=== PATIENT | male | born 1985 | race Caucasian/White ===

== ENCOUNTER 2019-06-09 14:25 | Emergency (ER) | payer OTHER ==
[2019-06-09 14:43] VITALS: BP 136/102
--- NOTE | 2019-06-09 15:12 | ED Physician Documentation ---
History of Present Illness - Stated complaint Stated Complaint: BACK PX - Chief complaint Chief Complaint: Back Pain - Additonal information Additional information: This is a 33-year-old male with a history of recurrent chronic back pain who presents with a flare of his back pain. Patient is getting over the flu and has been coughing repeatedly, yesterday he was coughing and that flared up his left lower back pain. He has had x-rays as an outpatient which have been unrevealing bowel or bladder complaints. No numbness or tingling or weakness. No fever. He did not have any direct trauma to the region. He states that his back feels like it is been spasming for the last 24 hours, and he has been taking ibuprofen but this has not given him significant relief. Pain is moderate at rest, severe with movements. Review of Systems Constitutional: denies: Fever Musculoskeletal: reports: Back pain PD PAST MEDICAL HISTORY - Past Medical History Past Medical History: Yes : Kidney stones Musculoskeletal: Chronic back pain - Past Surgical History Past Surgical History: Yes General: Other - Present Medications Home Medications: Ambulatory Orders Medication Instructions Recorded Confirmed Cyclobenzaprine [Flexeril] 10 mg PO TID PRN #20 tablet 06/09/19 DULoxetine [Cymbalta] 30 mg PO DAILY 06/09/19 06/09/19 Lidocaine Patch 5% [Lidoderm Patch] 1 each TOP DAILY PRN #7 patch 06/09/19 - Allergies Allergies/Adverse Reactions: Allergies Allergy/AdvReac Type Severity Reaction Status Date / Time No Known Drug Allergies Allergy Verified 06/09/19 14:36 - Social History Does the pt smoke?: No Smoking Status: Never smoker Does the pt drink ETOH?: Yes Does the pt have substance abuse?: No - Immunizations Immunizations are current?: Yes PD ED PE NORMAL - Vitals Vital signs reviewed: Yes - General General: Alert and oriented X 3, No acute distress - HEENT HEENT: PERRL - Neck Neck: Supple, no meningeal sign - Cardiac Cardiac: RRR, No murmur - Respiratory Respiratory: No respiratory distress - Abdomen Abdomen: Soft, Non tender, Non distended - Back Back: No spinal TTP, Other (Left paraspinous tenderness in the mid lumbar spine, no midline tenderness, no deformities, no overlying skin changes. Patient has 5 out of 5 strength with ankle dorsiflexion plantarflexion knee flexion extension. Sensation light touch is intact over all extremities. Patient is able to walk with a somewhat antalgic gait.) - Derm Derm: Warm and dry - Extremities Extremities: No deformity - Neuro Neuro: Alert and oriented X 3 - Psych Psych: Normal mood, Normal affect Results - Vitals Vitals: Vital Signs - 24 hr 06/09/19 14:37 Temperature 36.2 C L Heart Rate 72 Respiratory 18 Rate Blood Pressure 136/102 H O2 Saturation 97 Oxygen O2 Source Room air Procedures - General procedure General procedure: Trigger point injection: After discussion of the risks of the procedure verbal consent was obtained. The 2 areas of maximal tenderness with located, cleaned with alcohol, and 0.5ml of lidocaine injected into the paraspinous muscles at these locations, with care to stay superficial and in the muscle. There was no bleeding afterwards, no complications, pt tolerated the procedure well. PD MEDICAL DECISION MAKING - ED course ED course: Pt presents with an exacerbation of chronic back pain. He has had imaging in the past, and this pain is identical to past episodes. No red flags: no fever, weakness, bowel or bladder symptoms, trauma, history of cancer, or advanced age. His pain is in the paraspinous muscles. After trigger point injection I prescribed flexeril and lidocaine patches and reviewed follow up and supportive care and patient was discharged home in good condition. Departure - Departure Disposition: 01 Home, Self Care Clinical Impression: Back pain Qualifiers: Back pain location: low back pain Chronicity: acute Back pain laterality: left Sciatica presence: without sciatica Qualified Code(s): M54.5 - Low back pain Condition: Good Instructions: ED Neck Back Pain General Follow-Up: Sobia Pena MD [Primary Care Provider] - Prescriptions: Cyclobenzaprine [Flexeril] 10 mg PO TID PRN #20 tablet PRN Reason: Spasms Lidocaine Patch 5% [Lidoderm Patch] 1 each TOP DAILY PRN #7 patch PRN Reason: Pain Comments: You were seen today for back pain. We have done a trigger point injection which hopefully will help with your pain. You may also use the Flexeril, and the lidocaine patches. You should also take ibuprofen 600 mg every 6 hours and Tylenol 650 mg every 6 hours for discomfort. Avoid straining or lifting movements until your back pain is improving. If you developing worsening symptoms such as severely increasing pain, numbness, weakness, or difficulty urinating or having bowel movements return to the emergency department Forms: Activity restrictions Discharge Date/Time: 06/09/19 16:18
[2019-06-09] MEDS ORDERED: BUFFERED LIDOCAINE 10 ML SYRINGE SUBQ STA (15:36)
== END 2019-06-09 16:18 | disposition home or self-care (01) ==
LOC: ED 14:25
DX: M54.5 Low back pain (principal); G89.29 Other chronic pain
CPT/HCPCS: 20552

== ENCOUNTER 2021-09-13 14:26 | Emergency (ER) | payer OTHER ==
[2021-09-13 14:56] VITALS: BP 121/80
[2021-09-13] MEDS ORDERED: KETOROLAC 60 MG/2 ML VIAL IM STA (15:52)
--- NOTE | 2021-09-13 15:55 | ED Physician Documentation ---
History of Present Illness - Stated complaint Stated Complaint: BACK PX - Chief complaint Chief Complaint: Back Pain - Additonal information Additional information: 35-year-old male who is active [employer] presents emergency department for e valuation of left low sided back pain. Nonradiating. No falls or trauma. No saddle anesthesia. No history of spinal instrumentation, diabetes or injection drug use. States that he has back pain flares about every 3 to 6 months which typically resolve with movement and sometimes muscle relaxers. The symptoms began 48 hours ago. Did not improve with his usual regimen thus he presents to the ER now Review of Systems Constitutional: reports: Reviewed and negative Ears: reports: Reviewed and negative Throat: reports: Reviewed and negative Cardiac: reports: Reviewed and negative Respiratory: reports: Reviewed and negative GI: reports: Reviewed and negative : reports: Reviewed and negative Musculoskeletal: reports: Back pain Neurologic: reports: Reviewed and negative Psychiatric: reports: Reviewed and negative PD PAST MEDICAL HISTORY - Past Medical History Past Medical History: Yes Cardiovascular: None Respiratory: None Neuro: None Endocrine/Autoimmune: None GI: None : Kidney stones HEENT: None Psych: None Musculoskeletal: Chronic back pain Derm: None - Past Surgical History Past Surgical History: Yes General: Other - Present Medications Home Medications: Ambulatory Orders Medication Instructions Recorded Confirmed Cyclobenzaprine [Flexeril] 10 mg PO TID PRN #20 tablet 06/09/19 DULoxetine [Cymbalta] 30 mg PO DAILY 06/09/19 06/09/19 Lidocaine Patch 5% [Lidoderm Patch] 1 each TOP DAILY PRN #7 patch 06/09/19 Cyclobenzaprine [Flexeril] 10 mg PO TID PRN #20 tablet 09/13/21 HYDROcod/ACETAM 5/325 [Rogers 5/325] 1 tablet PO BID PRN #10 tablet 09/13/21 Ibuprofen [Motrin] 600 mg PO Q6H PRN #30 tab 09/13/21 - Allergies Allergies/Adverse Reactions: Allergies Allergy/AdvReac Type Severity Reaction Status Date / Time No Known Drug Allergies Allergy Verified 09/13/21 14:52 - Social History Does the pt smoke?: No Smoking Status: Never smoker Does the pt drink ETOH?: Yes Does the pt have substance abuse?: No - Immunizations Immunizations are current?: Yes PD ED PE NORMAL - General General: Alert and oriented X 3, No acute distress - HEENT HEENT: Atraumatic - Neck Neck: Supple, no meningeal sign - Cardiac Cardiac: RRR, No murmur - Abdomen Abdomen: Normal bowel sounds, Soft - Back Back: No spinal TTP (Mild left lower lumbar paraspinous tenderness. Reduced forward flexion range of motion. No rash, ecchymosis or erythema. Motor strength 5 of 5 bilateral lower extremities. No paresthesias. 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 Clinically no red flags and a reassuring exam though he does have an antalgic gait. Patient was given Toradol here in the emergency department. Will be discharged with prescription for ibuprofen, limited muscle relaxer as well as a limited amount of hydrocodone. Emergent return precautions were discussed for failure of symptoms to resolve. I did discuss that since this is a recurrent problem and physical therapy has not improved his symptoms he may benefit from MRI I am prescribing a short course of short-acting opioid pain medication for this patient. I have reviewed the patients [employer]PER[employer] and no concerning findings were noted. I have discussed that the opioids are for short term therapy only, and will not be refilled from the ED. Departure - Departure Disposition: 01 Home, Self Care Clinical Impression: Left low back pain Qualifiers: Chronicity: acute Sciatica presence: without sciatica Qualified Code(s): M54.50 - Low back pain, unspecified Condition: Stable Record reviewed to determine appropriate education?: Yes Instructions: ED Spasm Back No Trauma Prescriptions: Cyclobenzaprine [Flexeril] 10 mg PO TID PRN #20 tablet PRN Reason: Spasms Ibuprofen [Motrin] 600 mg PO Q6H PRN #30 tab PRN Reason: Pain HYDROcod/ACETAM 5/325 [Rogers 5/325] 1 tablet PO BID PRN #10 tablet PRN Reason: Pain Comments: Jose Maria you are seen today in the emergency department for pain in the left side of your low back. As we discussed at the bedside I would like you to use the ibuprofen with food 2-3 times a day. I have prescribed a limited amount of hydrocodone for severe pain only. You may also benefit from using the muscle relaxer. Because this has become a recurrent problem for you and physical therapy has not helped [facility] may wish to make a referral for you to a back pain specialist or consider an MRI moving forward. If any point you find that your symptoms are worsening, you have loss of control of bowel or bladder function, sudden weakness in your arms or legs or numbness or tingling in your genital area then please return immediately to the ER for second evaluation Your prescriptions have been sent electronically to the [facility] in [place] I am prescribing a short course of narcotic pain medication for you. These are potentially dangerous and addictive medications that should be used carefully. These medications may constipate you. Take an sknn-nna-qwahalh stool softener (docusate) twice daily with plenty of water while taking these medications. If you go 24 hours without a bowel movement, take iqjy-bzf-mqbnido miralax, per package instructions. Do not drink or drive while taking these medications. If you received narcotic or sedating medications while in the emergency department, do not drive for 24 hours. Store this medication in a safe, secure place and out of reach of children. It is a violation of federal law to give or sell this medication to another person or to use in a manner other than prescribed. The ED will not refill narcotic prescriptions, including prescriptions lost or stolen. To dispose of unwanted medications: 1. [facility] at [address] in [place] has a medication drop box. They accept prescription medications (in pill form) Sunday through Sunday 9:00 a.m. to 5:00 p.m. 2. The [facility] [employer] accepts prescription medications (in pill form only) for disposal year round. Call for more information. 3. Contact the [facility] for the next [facility] sponsored prescription drug collection event. , [phone], or [phone]; Note that many narcotic pain relievers also contain Tylenol/acetaminophen. Please ensure that your total dose of acetaminophen from all sources does not exceed 3 g (3000 mg) per day.
== END 2021-09-13 16:41 | disposition home or self-care (01) ==
LOC: ED 14:26
DX: M54.50 Low back pain, unspecified (principal)
CPT/HCPCS: 96372; 99283

== ENCOUNTER 2022-04-26 13:01 | Outpatient (CLI) | payer OTHER ==
[2022-04-26 14:10] VITALS: BP 140/88
--- NOTE | 2022-04-26 14:10 | SLEEP CARE CONSULTATION ---
Information from patient questionnaire entered by Genna Navarro. I have reviewed and concur with the information entered by Genna Navarro. This document represents the service I personally performed and the decisions made by me, Charisse Campbell ARNP. History of Present Illness Service Date and Time: 04/26/2022 1301 Reason for Visit: New patient, Previously diagnosed sleep apnea, sleep apnea on CPAP therapy (set up on 05/13/2018) Chief Complaint: reports: Unrefreshed sleep, Snoring, Observed pauses in breathing, Other (UPDATE SUPPLIES) Date of Onset: [employer] Usual bedtime: 8PM Time it takes to fall asleep: 10-60MIN Snores at night: Yes Observed to quit breathing while asleep: Yes Sleeps alone due to snoring: No Number of times waking at night: UNSURE Reasons for waking at night: reports: Snoring, Other (NOISE) Toss, Turn, or Twitch while sleeping: Yes Recalls having dreams: Yes Usually gets out of bed at: 5AM Feels refreshed in the morning: No Morning headache: No Sleepy or fatigued during the day: Yes Ever fallen asleep while driving: No Takes day naps: No Dreams during day naps: No Prior sleep studies: Yes (2018 [facility] [place]) Additional HPI information: JENNIFER PLUNKETT was previously diagnosed to have unknown, AHI unknown, obstructive sleep apnea-hypopnea syndrome and comes in today to establish care for CPAP therapy. He was setup on CPAP in 2018 after getting a sleep study done in [place]. 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 He has used it but it does not fit comfortably. He tried to adjust it but it still does not seem to fit right. - Parasomnia Symptoms Ever been unable to move upon waking from sleep: No Walks in sleep: No Talks in sleep: No Ever acted out dreams in sleep: No Ever felt weak in the knees when startled or emotional: Yes Bothered by creepy, crawly, restless sensations in legs: No Problems with memory or concentration: Yes CPAP Compliance Data - Data Reviewed with Patient Average duration of nightly device use: 6 hour 52 minutes Compliance rate %: 63 (67/90 days used) Current pressure setting (cmH2O): 5-14 Average residual AHI: 6.1 Central apnea: 3.2 Obstructive apnea: 2.2 Compliance data discussion: He used his oral appliance 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 He has been using [employer] for his supplies but has not got any for a long time. He is using a fullface mask. He has an ResMed Airsense 10. Subjective Patient concerns: reports: dry mouth, nose, throat (dry mouth when wake up; using humidifier). denies: aerophagia, mask discomfort, air blowing in eyes, mask leak noise, condensation in mask/hose, nasal congestion, epistaxis Observed to snore while using device: No Current pressure setting perceived as: comfortable On therapy, patient: reports: sleeping better, awakening more refreshed, being more awake and alert during the day, more rested overall. denies: drowsiness while driving Initial [place] Sleepiness Scale score: 18 (04/03/22) Past Medical History Past Medical History: reports: Anxiety, Depression Social History The patient's occupation is a AM. Patient is Single and lives in . Have you smoked in the past 12 months: No Alcohol use: Yes Alcohol amount and frequency: 1-2 DRINKS MONTHLY Caffeine use: Yes Caffeine amount and frequency: 1DAILY Family History Family history of sleep disordered breathing: Yes Family Hx Sleep Apnea: Mother: Snoring, Sleep apnea - Treated Allergies and Home Medications Known drug allergies: No Drug allergies reviewed: Yes (NKDA) Home medication list reviewed: Yes (see list in EMR) Review of Systems Weight gain over past 5 years: 30 Cardiovascular: denies: high blood pressure Respiratory: denies: shortness of breath Gastrointestinal: reports: heartburn Neurological: denies: headaches Psychiatric: reports: anxiety, depression. denies: Attention Deficit Hyperactivity Ear/Nose/Throat: reports: wisdom teeth removed. denies: tonsillectomy Endocrine: reports: sluggishness Musculoskeletal: reports: back pain Physical Exam Vital signs obtained and entered by: GENNA Garcia MA Blood Pressure: 140/88 (left arm) Cuff size: regular Heart Rate: 77 O2 Saturation: 96 Height: 5 ft 9 in Weight: 209 lb 3.2 oz Body Mass Index: 30.9 BMI Classification: Obese Neck circumference: 16.5 Heart: regular rate and rhythm Lungs: clear bilaterally Impression and Plan 1. Obstructive Sleep Apnea-Hypopnea Syndrome, unknown, with good treatment compliance and good apnea control. On CPAP therapy, the patient has better sleep quality and is more rested overall. We are trying to obtain a copy of patient's last sleep study for our records. I will also need it to set him up with supplies. He was originally set up with [facility] but has not received any supplies for many months. The patients pressure will be changed to autoCPAP 8-12 cmH20 for elevation of residual AHI. Patient advised to contact me if pressure change is uncomfortable so that it can be adjusted. Goals for apnea control discussed. Patient's apnea severity and rationale for treatment to reduce apnea, improve sleep quality and reduce cardiovascular and cerebrovascular events was reviewed. I also reviewed the benefit of consistent device use of CPAP for depression/anxiety. 2. Obesity, unspecified. Currently patients BMI is 30.9. Obesity increases the risk of apnea, CPAP pressure requirements and overall health risks especially cardiovascular and diabetes. Thus patient is advised to continue to try to lose weight. * Change auto CPAP pressure to 8-12 cmH2O * Update supplies * Notify me if snoring with mask or feeling that the pressure is too much or too little * Attempt to lose weight * Call this office if any problems using CPAP * Return for follow up in 1-2 months, or sooner if concerns arise Counseling Topics: Spare mask, Weight loss health impact Visit Type: In Office Time Spent with Patient (minutes): 33 Provider Statement: I spent 100% of the Face to Face Visit with the patient with greater than 50% spent counseling the patient and coordination of care.
== END 2022-04-26 13:02 | disposition home or self-care (01) ==
LOC: SC 13:01
PROVIDERS: ATTEND Nurse Practitioner Family
DX: G47.33 Obstructive sleep apnea (adult) (pediatric) (principal); Z68.30 Body mass index [BMI] 30.0-30.9, adult
CPT/HCPCS: 99203; 99212

== ENCOUNTER 2022-06-09 11:20 | Outpatient (CLI) | payer OTHER ==
[2022-06-09 11:50] VITALS: BP 122/78
--- NOTE | 2022-06-09 11:50 | SLEEP CARE CONSULTATION ---
Information from patient questionnaire entered by Genna Navarro. I have reviewed and concur with the information entered by Genna Navarro. This document represents the service I personally performed and the decisions made by me, Charisse Campbell ARNP. History of Present Illness Service Date and Time: 06/09/2022 1120 Previous diagnosis: Severe, Obstructive Sleep Apnea-Hypopnea Syndrome AHI: 50.4 (in 2018) Reason for follow up: other (SIX WEEK F/U) Equipment type: CPAP (RESMED Airsense 10 s/u 04/2018) Equipment obtained from: Other ([facility]; getting supplies) Mask style: Full face Backup mask available: Yes (other mask) Last cushion change: 3 weeks ago Prior sleep studies: Yes HPI additional information: JENNIFER PLUNKETT was diagnosed to have severe, AHI 50.4, obstructive sleep apnea- hypopnea syndrome and returned today for CPAP therapy six week follow-up. CPAP Compliance Data - Data Reviewed with Patient Average duration of nightly device use: 7 HRS 12 MIN Compliance rate %: 87 (05/09/22-06/07/22; 28/30 days) Current pressure setting (cmH2O): 8-12 Average residual AHI: 4.8 Central apnea: 2.9 Obstructive apnea: 1.3 Hypopnea: 0.5 Average large leak: 0.5 LPM Subjective Missed days of use due to: reports: other (wake up early and can't fall back to sleep with mask on) Patient concerns: denies: aerophagia, mask discomfort, air blowing in eyes, mask leak noise, condensation in mask/hose, nasal congestion, dry mouth, nose, throat, epistaxis Observed to snore while using device: No Current pressure setting perceived as: comfortable On therapy, patient: reports: sleeping better, awakening more refreshed, being more awake and alert during the day, more rested overall. denies: drowsiness while driving Initial [place] Sleepiness Scale score: 18 Current [place] Sleepiness Scale score: 11 (06/09/2022) Allergies and Home Medications Drug allergies reviewed: Yes (NKDA) Home medication list reviewed: Yes (no changes) Review of Systems Review of systems same as previous: Yes (no changes) Physical Exam Vital signs obtained and entered by: GENNA Garcia MA Blood Pressure: 122/78 (LEFT ARM) Cuff size: regular Heart Rate: 68 O2 Saturation: 96 Height: 5 ft 9 in Weight: 203 lb 3.2 oz Body Mass Index: 29.9 BMI Classification: Overweight Impression and Plan 1. Obstructive Sleep Apnea-Hypopnea Syndrome, severe, with good treatment compliance and good apnea control. On CPAP therapy, the patient has better sleep quality and is more rested overall. Patient has reduced AHI at 4.8 with central index at 2.9 and obstructive index at 1.3. The patients pressure will be changed to autoCPAP 7-11 cmH20 to try and further reduce residual AHI. Patient advised to contact me if pressure change is uncomfortable so that it can be adjusted. Goals for apnea control discussed. Patient's apnea severity and rationale for treatment to reduce apnea, improve sleep quality and reduce cardiovascular and cerebrovascular events was reviewed. I also reviewed the benefit of consistent device use of CPAP for depression/anxiety. 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 He voiced agreement and will call to make his appointment. 2. Obesity, unspecified. Currently patients BMI is 29.9. Obesity increases the risk of apnea, CPAP pressure requirements and overall health risks especially cardiovascular and diabetes. Thus patient is advised to lose weight. * Change auto CPAP pressure to 7-11 cmH2O * Notify me if snoring with mask or feeling that the pressure is too much or too little * Attempt to lose weight * Call this office if any problems using CPAP * Return for follow up in 1 year, or sooner if concerns arise Counseling Topics: Spare mask, Weight loss health impact Visit Type: In Office Time Spent with Patient (minutes): 20 Provider Statement: I spent 100% of the Face to Face Visit with the patient with greater than 50% spent counseling the patient and coordination of care.
== END 2022-06-09 11:21 | disposition home or self-care (01) ==
LOC: SC 11:20
PROVIDERS: ATTEND Nurse Practitioner Family
DX: G47.33 Obstructive sleep apnea (adult) (pediatric) (principal); E66.9 Obesity, unspecified; Z68.29 Body mass index [BMI] 29.0-29.9, adult
CPT/HCPCS: 99212; 99213

== ENCOUNTER 2022-07-12 09:06 | Outpatient (CLI) | payer OTHER ==
--- NOTE | 2022-07-12 11:34 | MRI Report ---
PROCEDURE: WRIST WO - LT INDICATIONS: LEFT WRIST PAIN TECHNIQUE: Noncontrast coronal T1 spin echo, proton density fast spin echo and T2 fast spin echo with fat satura tion; coronal 3-D gradient echo, axial T1 spin echo and T2 fast spin echo with fat saturation, sagitt al T1 spin echo through the wrist. COMPARISON: Left wrist radiographs 11/25/2021. FINDINGS: Image quality: Excellent. Bones and cartilage: The carpal bones are normally aligned. No bone marrow contusions or fractures. No evidence for avascular necrosis. Cystic changes are seen in the distal hamate adjacent to the fo urth carpometacarpal joint. Minimal first carpal metacarpal joint osteoarthrosis. Carpal ligaments: The scapholunate and lunotriquetral ligaments appear intact. On sagittal images, t he pisohamate ligament appears intact. Triangular fibrocartilage complex: The triangular fibrocartilage appears intact. The adjacent menis [place] homolog appears normal in the absence of intra-articular contrast. The extensor carpi ulnaris te ndon is normal in location and morphology. Tendons and soft tissues: The carpal tunnel structures appear normal, including the median nerve. T he ulnar nerve appears normal within Guyon's canal. Mild extensor carpi ulnaris tendinosis. The remai roya extensor tendon compartments demonstrate normal morphology, without pathologic tendon sheath flu id. No soft tissue ganglion cysts. IMPRESSION: 1.No acute trabecular bone injury. No significant ligament injury is seen. 2.Mild extensor carpi ulnaris tendinosis. 3.Mild focal cystic changes in the distal hamate may be degenerative or related to remote prior traum a. Reviewed by: Mohsen Lopez MD on 07/12/2022 11:32 AM PST Approved by: Mohsen Lopez MD on 07/12/2022 11:32 AM PST Station ID: [id number]
== END 2022-07-12 09:07 | disposition home or self-care (01) ==
LOC: DI 09:06
PROVIDERS: ATTEND Physician Assistant Surgical
DX: M67.932 Unspecified disorder of synovium and tendon, left forearm (principal); M18.12 Unilateral primary osteoarthritis of first carpometacarpal joint, left hand

== ENCOUNTER 2023-09-06 08:00 | Outpatient (CLI) | payer OTHER ==
--- NOTE | 2023-09-06 13:59 | XRAY Report ---
PROCEDURE: Wrist 3 View BILAT INDICATIONS: BILAT WRIST PAIN TECHNIQUE: 3 views of the wrist were acquired. COMPARISON: 11/25/2021 FINDINGS: Bones: No fractures or dislocations. No suspicious bony lesions. Soft tissues: No suspicious soft tissue calcifications or masses. IMPRESSION: No acute bony abnormality. No significant degenerative change. Reviewed by: Iván Hernandez MD on 09/06/2023 1:58 PM PDT Approved by: Iván Hernandez MD on 09/06/2023 1:58 PM PDT Station ID: [id number]
== END 2023-09-06 23:59 | disposition home or self-care (01) ==
LOC: DI.WOS 08:00
PROVIDERS: ATTEND Physician Assistant Surgical
DX: M25.532 Pain in left wrist (principal); M25.531 Pain in right wrist